=== PATIENT | male | born 1960 | race Caucasian/White ===

== ENCOUNTER 2021-11-03 22:47 | Emergency (ER) | payer SELFPAY ==
--- OUTSIDE RECORDS SUMMARY | 2021-11-03 22:50 | XMS REPORT | Continuity of Care Document ---
:1960 Author Organization [facility] t Address [address] Dur[address] [place] [id number] Care Team Providers Name Role Phone Unavailable Unavailable Unavailable Problems This patient has no known problems. Allergies, Adverse Reactions, Alerts Allergy Allergy Status Severity Reaction(s) Onset Inactive Treating Comm ents Source Name Type Date Date Clinician NO KNOWN Drug Active Univers ALLERGIE Class [facility] Medications This patient has no known medications. Procedures This patient has no known procedures. Encounters Start End Encounter Admission Attending Care Care Encounter Source Date/Time Date/Time Type Type Clinicians Facility Department ID 2020-02-03 2020-02-03 Outpatient [place] [id number] [facility] 13:40:00 13:40:00 [id number] [facility] 2020-02-03 2020-02-03 Outpatient [place] [id number] [facility] 13:40:00 13:40:00 [facility] Results This patient has no known results.
--- NOTE | 2021-11-03 23:06 | ER ---
Nurse's Notes [facility] Name: Alex Galvan Jr Age: 61 yrs Sex: Male : 1960 Arrival Date: 11/03/2021 Time: 22:50 Bed 4 Private MD: Diagnosis: Dental caries, unspecified Presentation: 11/03 22:57 Chief complaint: Patient states: Pain to left lower jaw, reports broken tooth, has not lp1 been able to seen dentist due to financial reasons; Reports headache. Onset of symptoms was November 03, 2021. 22:57 Method Of Arrival: Ambulatory lp1 22:57 Acuity: BON 4 lp1 23:05 Coronavirus screen: Vaccine status: Patient reports being unvaccinated. Ebola Screen: tw5 Patient negative for fever greater than or equal to 101.5 degrees Fahrenheit, and additional compatible Ebola Virus Disease symptoms Patient denies exposure to infectious person. Patient denies travel to an Ebola-affected area in the 21 days before illness onset. Initial Sepsis Screen: Does the patient meet any 2 criteria? No. Patient's initial sepsis screen is negative. Does the patient have a suspected source of infection? No. Patient's initial sepsis screen is negative. Risk Assessment: Do you want to hurt yourself or someone else? Patient reports no desire to harm self or others. Triage Assessment: 23:09 Headache History: Other not a headache. General: Appears uncomfortable, Behavior is tw5 calm, cooperative, appropriate for age. Pain: Pain currently is 8 out of 10 on a pain scale. Pain began gradually, Also complains of no other associated symptoms. EENT: Poor dentition noted. Neuro: Level of Consciousness is awake, alert, obeys commands. Historical: - Allergies: 23:09 No Known Allergies; tw5 - Immunization history:: Flu vaccine is not up to date. - Social history:: Smoking status: Patient reports use of chewing tobacco. Screenin:10 Abuse screen: Denies threats or abuse. Denies injuries from another. Nutritional tw5 screening: No deficits noted. Tuberculosis screening: No symptoms or risk factors identified. Fall Risk None identified. Assessment: 23:10 Pain: Pain currently is 8 out of 10 on a pain scale. Quality of pain is described as tw5 throbbing. Neuro: Level of Consciousness is awake, alert, obeys commands. EENT: Dental caries noted in lower left first molar (#19) and lower left second bicuspid (#20). Vital Signs: 23:05 BP 186 / 106; Pulse 68; Resp 18; Temp 97.8; Pulse Ox 97% on R/A; Weight 97.07 kg; tw5 Height 5 ft. 9 in. (175.26 cm); Pain 9/10; 23:05 Body Mass Index 31.60 (97.07 kg, 175.26 cm) tw5 ED Course: 22:50 Patient arrived in ED. ja2 22:51 Waldo Simmons MD is Attending Physician. kdr 22:58 Triage completed. lp1 23:03 Armando Eisenberg DDS is Referral Physician. kdr 23:09 Arm band placed on. tw5 23:10 Patient has correct armband on for positive identification. Adult w/ patient. Pulse ox tw5 on. NIBP on. Door closed. Moved to private room. 23:11 Pamela Arguello is Primary Nurse. tw5 23:21 No provider procedures requiring assistance completed. Patient did not have IV access tw5 during this emergency room visit. Administered Medications: 23:21 Not Given (Other Intervention Used): penicillin VK 250 mg PO once tw5 23:22 Drug: [place] (HYDROcodone-acetaminophen) 10 mg-325 mg 1 tabs Route: PO; tw5 23:22 Follow up: Response: No adverse reaction tw5 23:22 Drug: Amoxicillin 500 mg Route: PO; tw5 23:22 Follow up: Response: No adverse reaction tw5 Outcome: 23:05 Discharge ordered by . kdr 23:22 Discharged to home ambulatory. tw5 23:22 Condition: stable 23:22 Discharge instructions given to patient, Instructed on discharge instructions, follow up and referral plans. medication usage, Demonstrated understanding of instructions, follow-up care, medications, Prescriptions given X 2. 23:23 Patient left the ED. tw5 Signatures: Waldo Simmons MD MD kdr Jammie Miranda, JOSUÉ RN 1 Delmy Goncalves [facility] Pamela Arguello tw5
--- NOTE | 2021-11-03 23:06 | EDPHYS ---
Physician Documentation [facility] Name: Alex Galvan Jr Age: 61 yrs Sex: Male : 1960 Arrival Date: 11/03/2021 Time: 22:50 Bed 4 Private MD: ED Physician Waldo Simmons HPI: 11/04 00:59 This 61 yrs old Male presents to ER via Ambulatory with complaints of Mouth Problem, kdr Headache. 00:59 The patient presents with broken tooth/teeth, lost tooth/teeth, pain. The problem is kdr located in the lower left first molar, lower left second bicuspid and lower left first bicuspid. Onset: The symptoms/episode began/occurred gradually, 2 day(s) ago. Duration: The symptoms are continuous, and are steadily getting worse. Modifying factors: The symptoms are alleviated by nothing, the symptoms are aggravated by air, chewing, cold fluids, food. Associated signs and symptoms: Pertinent positives: pain, Pertinent negatives: anorexia, chills. Severity of symptoms: At their worst the symptoms were mild, moderate, just prior to arrival, in the emergency department the symptoms are unchanged. The patient has experienced similar episodes in the past, a few times. Historical: - Allergies: 11/03 23:09 No Known Allergies; tw5 - Immunization history:: Flu vaccine is not up to date. - Social history:: Smoking status: Patient reports use of chewing tobacco. ROS: 11/04 00:59 Constitutional: Negative for fever, chills, and weight loss, Eyes: Negative for injury, kdr pain, redness, and discharge, Neck: Negative for injury, pain, and swelling, Cardiovascular: Negative for chest pain, palpitations, and edema, Respiratory: Negative for shortness of breath, cough, wheezing, and pleuritic chest pain, Abdomen/GI: Negative for abdominal pain, nausea, vomiting, diarrhea, and constipation, Back: Negative for injury and pain, : Negative for injury, bleeding, discharge, and swelling, MS/Extremity: Negative for injury and deformity, Skin: Negative for injury, rash, and discoloration, Neuro: Negative for headache, weakness, numbness, tingling, and seizure activity. Psych: Negative for depression, anxiety, suicide ideation, homicidal ideation, and hallucinations, Allergy/Immunology: Negative for hives, rash, and allergies, Endocrine: Negative for neck swelling, polydipsia, polyuria, polyphagia, and marked weight changes, Hematologic/Lymphatic: Negative for swollen nodes, abnormal bleeding, and unusual bruising. ENT: Positive for dental pain, Gum pain Teeth pain Exam: 00:59 Constitutional: This is a well developed, well nourished patient who is awake, alert, kdr and in no acute distress. 00:59 ENT: Mouth: Gums: reddened, swollen, Dental exam: dental caries, that is severe, diffusely, fractured teeth are noted, diffusely, missing teeth, diffusely, pain, that is mild, specifically in the lower left first molar (#19), lower left second bicuspid (#20) and lower left first bicuspid (#21). Vital Signs: 11/03 23:05 BP 186 / 106; Pulse 68; Resp 18; Temp 97.8; Pulse Ox 97% on R/A; Weight 97.07 kg; tw5 Height 5 ft. 9 in. (175.26 cm); Pain 9/10; 23:05 Body Mass Index 31.60 (97.07 kg, 175.26 cm) tw5 MDM: 23:05 Patient medically screened. kdr 11/04 00:59 Data reviewed: vital signs, nurses notes. Counseling: I had a detailed discussion with kdr the patient and/or guardian regarding: the historical points, exam findings, and any diagnostic results supporting the discharge/admit diagnosis, the need for outpatient follow up. Administered Medications: 11/03 23:21 Not Given (Other Intervention Used): penicillin VK 250 mg PO once tw5 23:22 Drug: [place] (HYDROcodone-acetaminophen) 10 mg-325 mg 1 tabs Route: PO; tw5 23:22 Follow up: Response: No adverse reaction tw5 23:22 Drug: Amoxicillin 500 mg Route: PO; tw5 23:22 Follow up: Response: No adverse reaction tw5 Disposition Summary: 11/03/21 23:05 Discharge Ordered Location: Home kdr Problem: new kdr Symptoms: have improved kdr Condition: Stable kdr Diagnosis - Dental caries, unspecified kdr Followup: kdr - With: Private Physician - When: 2 - 3 days - Reason: If symptoms return, Further diagnostic work-up, Recheck today's complaints, Continuance of care, Re-evaluation by your physician Followup: kdr - With: Armando Eisenberg DDS - When: 2 - 3 days - Reason: If symptoms return, Further diagnostic work-up, Recheck today's complaints, Continuance of care, Re-evaluation by your physician Discharge Instructions: - Discharge Summary Sheet kdr - Dental Caries, Adult kdr - Dental Pain, [id number] kdr Forms: - Medication Reconciliation Form kdr - Thank You Letter kdr - Antibiotic Education kdr - Prescription Opioid Use kdr Prescriptions: - Tylenol-Codeine #3 300 mg-30 mg Oral - take 1 tablet by ORAL route every 4-6 hours As needed; 12 tablet; Refills: 0, kdr Product Selection Permitted - Amoxicillin 500 mg Oral Capsule - take 1 capsule by ORAL route every 8 hours for 10 days; 30 tablet; Refills: 0, kdr Product Selection Permitted Signatures: Waldo Simmons MD MD kdr Pamela Arguello tw5
[2021-11-03] MEDS ORDERED: HYDROCODONE/APAP 10/325 TAB ONE (23:12)
[2021-11-03] MEDS ORDERED: AMOXICILLIN TRIHYDR 250 MG CAP ONE (23:17)
[2021-11-03 23:54] VITALS: BP 186/106; TEMP 97.8; O2SAT 97
== END 2021-11-03 23:23 | disposition home or self-care (01) ==
LOC: ER 22:47
DX: K02.9 Dental caries, unspecified (principal); R51.9 Headache, unspecified; F17.220 Nicotine dependence, chewing tobacco, uncomplicated
CPT/HCPCS: 99283

== ENCOUNTER 2021-12-11 09:24 | Emergency (ER) | payer SELFPAY ==
--- OUTSIDE RECORDS SUMMARY | 2021-12-11 09:26 | XMS REPORT | Continuity of Care Document ---
:1960 Author Organization [facility] t Address [address] [place] [address] Care Team Providers Name Role Phone Unavailable Unavailable Unavailable Problems This patient has no known problems. Allergies, Adverse Reactions, Alerts Allergy Allergy Status Severity Reaction(s) Onset Inactive Treating Comm ents Source Name Type Date Date Clinician NO KNOWN Drug Active [facility] ALLERGIE Class [facility] Medications This patient has no known medications. Procedures This patient has no known procedures. Encounters Start End Encounter Admission Attending Care Care Encounter Source Date/Time Date/Time Type Type Clinicians Facility Department ID 2020-02-03 2020-02-03 Outpatient [address] [facility] [id number] Univers 13:40:00 13:40:00 [id number] [facility] 2020-02-03 2020-02-03 [address]patient R [facility] [id number] Univers 13:40:00 13:40:00 [facility] Results This patient has no known results.
[2021-12-11] MEDS ORDERED: LIDOCAINE JELLY 2%- 5 ML TUBE ONE (10:02)
[2021-12-11] MEDS ORDERED: LIDOCAINE 1% MPF 5 ML VIAL ONE ×2 (10:03→10:44)
--- NOTE | 2021-12-11 11:02 | ER ---
Nurse's Notes [facility] Name: Alex Galvan Jr Age: 61 yrs Sex: Male : 1960 Arrival Date: 12/11/2021 Time: 09:27 Bed 10 Private MD: Diagnosis: Cutaneous abscess of right axilla Presentation: 12/11 09:30 Chief complaint: Patient states: "I have this abscess under my arm and on my elbow. on jd3 the right arm. the one on the elbow busted, but the one under the arm is causing pain. We aren't sure if it is staff or what. it has been then for about a week now.". Coronavirus screen: At this time, the client does not indicate any symptoms associated with coronavirus-19. Ebola Screen: No symptoms or risks identified at this time. Initial Sepsis Screen: Does the patient meet any 2 criteria? No. Patient's initial sepsis screen is negative. Does the patient have a suspected source of infection? No. Patient's initial sepsis screen is negative. Risk Assessment: Do you want to hurt yourself or someone else? Patient reports no desire to harm self or others. Onset of symptoms was December 03, 2021. 09:30 Method Of Arrival: Ambulatory jd3 09:30 Acuity: BON 3 jd3 Triage Assessment: 11:28 General: Appears in no apparent distress. Behavior is calm, cooperative. iw Historical: - Allergies: 09:33 No Known Allergies; jd3 - Home Meds: 09:33 None [Active]; jd3 - PMHx: 09:33 None; jd3 - PSHx: 09:33 None; jd3 - Immunization history:: Adult Immunizations up to date, Client reports having NOT received the Covid vaccine. - Social history:: Smoking status: Patient reports use of chewing tobacco. Screenin:28 Abuse screen: Denies threats or abuse. Denies injuries from another. Nutritional iw screening: No deficits noted. Tuberculosis screening: No symptoms or risk factors identified. Fall Risk None identified. Assessment: 09:35 General: Appears uncomfortable, Behavior is calm. Pain: Complains of pain in right iw axilla. Neuro: [place] Agitation-Sedation Scale (RASS): Level of Consciousness is awake, alert, obeys commands, Oriented to person, place, time, situation, Moves all extremities. Cardiovascular: Patient's skin is warm and dry. Respiratory: Respiratory effort is even, unlabored, Respiratory pattern is regular. Derm: Abscess located on right axilla. Derm: Abscess located on right elbow. Musculoskeletal: Range of motion: intact in all extremities. Vital Signs: 09:33 BP 142 / 70; Pulse 99; Resp 18 S; Temp 98.1(TE); Pulse Ox 99% on R/A; Weight 96.62 kg jd3 (R); Height 5 ft. 9 in. (175.26 cm) (R); Pain 5/10; 09:33 Body Mass Index 31.45 (96.62 kg, 175.26 cm) jd3 ED Course: 09:27 Patient arrived in ED. as 09:32 Triage completed. jd3 09:34 Arm band placed on. jd3 09:40 Patient has correct armband on for positive identification. iw 09:46 Kylah Rai NP is PHCP. aj3 09:46 Waldo Simmons MD is Attending Physician. aj3 09:56 Kim Ireland, JOSUÉ is Primary Nurse. iw 10:50 Assist provider with I \\T\\ D: of an abscess on right axilla Set up I\\T\\D tray. Performed by iw Kylah Rai NP Wound packed. Dressing with Patient tolerated. Patient did not have IV access during this emergency room visit. 10:59 Angel Kyle MD is Referral Physician. aj3 Administered Medications: 10:02 Drug: Lidocaine Gel 2 % 1 application Route: Mucous Membrane; iw 11:00 Drug: Lidocaine (1 %) 10 ml Volume: 20 ml; Route: Infiltration; iw 11:26 Drug: Ibuprofen 400 mg Route: PO; iw 11:40 Follow up: Response: No adverse reaction iw 11:26 Drug: HYDROcodone-acetaminophen 10 mg-325 mg 1 tabs Route: PO; iw 11:45 Follow up: Response: No adverse reaction iw Medication: 10:00 VIS not applicable for this client. iw Outcome: 11:01 Discharge ordered by . aj3 11:03 Patient left the ED. aj3 11:28 Discharged to home ambulatory, with family. iw 11:28 Condition: good 11:28 Discharge instructions given to patient, Instructed on discharge instructions, follow iw up and referral plans. medication usage, Demonstrated understanding of instructions, follow-up care, medications, Prescriptions given X 2. 11:29 Patient left the ED. iw Signatures: Caterina Navarrete Irene RN RN iw Sage Caputo RN RN jd3 Kylah Rai, HOUSE CARPENTER HOUSE CARPENTER aj3
--- NOTE | 2021-12-11 11:02 | EDPHYS ---
Physician Documentation [facility] Name: Alex Galvan Jr Age: 61 yrs Sex: Male : 1960 Arrival Date: 12/11/2021 Time: 09:27 Bed 10 Private MD: ED Physician Waldo Simmons HPI: 12/11 11:38 This 61 yrs old Male presents to ER via Ambulatory with complaints of Abscess, Fever, aj3 chills. 11:38 The patient presents with an abscess of the Right axilla and right elbow. Onset: The aj3 symptoms/episode began/occurred acutely, 1 week(s) ago. Associated signs and symptoms: Pertinent positives: drainage, erythema, fever, Pertinent negatives: nausea, shortness of breath, vomiting. Patient is presenting with abscess to right axilla region for the past week. He also noticed abscess to right elbow which is improving. He reports he noticed some fever and chills last night.. Historical: - Allergies: 09:33 No Known Allergies; jd3 - Home Meds: 09:33 None [Active]; jd3 - PMHx: 09:33 None; jd3 - PSHx: 09:33 None; jd3 - Immunization history:: Adult Immunizations up to date, Client reports having NOT received the Covid vaccine. - Social history:: Smoking status: Patient reports use of chewing tobacco. ROS: 11:38 Eyes: Negative for injury, pain, redness, and discharge, ENT: Negative for nasal aj3 discharge, congestion, sore throat and injury Neck: Negative for injury, pain, and swelling, Cardiovascular: Negative for chest pain, palpitations, and edema, Respiratory: Negative for shortness of breath, cough, wheezing, and pleuritic chest pain, Abdomen/GI: Negative for abdominal pain, nausea, vomiting, diarrhea, and constipation, Neuro: Negative for syncope, headache, weakness, numbness, tingling, and seizure. 11:38 Constitutional: Positive for chills, fever, Negative for body aches, malaise. 11:38 MS/extremity: Positive for erythema, tenderness, Right elbow. 11:38 Skin: Positive for abscess, cellulitis, Right axilla. Exam: 11:38 Constitutional: This is a well developed, well nourished patient who is awake, alert, aj3 and in no acute distress. Head/Face: Normocephalic, atraumatic. Eyes: Pupils equal round and reactive to light, extra-ocular motions intact. Lids and lashes normal. Conjunctiva and sclera are non-icteric and not injected. Cornea within normal limits. Periorbital areas with no swelling, redness, or edema. ENT: Nares patent. No nasal discharge, no septal abnormalities noted. Tympanic membranes are normal and external auditory canals are clear. Oropharynx with no redness, swelling, or masses, exudates, or evidence of obstruction, uvula midline. Mucous membranes moist. Neck: Trachea midline and no cervical lymphadenopathy. Supple, full range of motion without nuchal rigidity. Cardiovascular: Regular rate and rhythm with a normal S1 and S2. No gallops, murmurs, or rubs. Normal PMI, no JVD. No pulse deficits. Respiratory: Lungs have equal breath sounds bilaterally, clear to auscultation and percussion. No rales, rhonchi or wheezes noted. No increased work of breathing, no retractions or nasal flaring. Abdomen/GI: Soft, non-tender, with normal bowel sounds. No distension or tympany. No guarding or rebound. No evidence of tenderness throughout. Neuro: Awake and alert, GCS 15, oriented to person, place, time, and situation. Cranial nerves II-XII grossly intact. Motor strength 5/5 in all extremities. Sensory grossly intact. Cerebellar exam normal. Normal gait. 11:38 Musculoskeletal/extremity: Exam is negative for Extremities: grossly normal except: erythema, swelling, tenderness, Right elbow. 11:38 Skin: abscess, that is moderate sized, of the Right axilla, with fluctuance, with induration, with surrounding cellulitis. 11:38 Neuro: Exam negative for Vital Signs: 09:33 BP 142 / 70; Pulse 99; Resp 18 S; Temp 98.1(TE); Pulse Ox 99% on R/A; Weight 96.62 kg jd3 (R); Height 5 ft. 9 in. (175.26 cm) (R); Pain 5/10; 09:33 Body Mass Index 31.45 (96.62 kg, 175.26 cm) jd3 Procedures: 11:00 I \T\ D: Incision and drainage was performed for an abscess of the right axilla. Prepped aj3 with Betadine, Anesthetized with Incised with #11 blade. Drained small amount purulent fluid. serosanguinous fluid. Loculations removed. Packed with iodoform gauze, Dressing: sterile 4x4 gauze, the patient tolerated the procedure well. MDM: 09:46 Patient medically screened. aj3 11:43 Data reviewed: vital signs, nurses notes. Counseling: I had a detailed discussion with aj3 the patient and/or guardian regarding: the historical points, exam findings, and any diagnostic results supporting the discharge/admit diagnosis, the need for outpatient follow up, to return to the emergency department if symptoms worsen or persist or if there are any questions or concerns that arise at home. Response to treatment: the patient's symptoms have mildly improved after treatment. 11:44 ED course: Incision and drainage performed with some success. Induration noted in aj3 pretty extensive. Will prescribe 2 antibiotics for 10 days patient to follow-up with PCP or return here for wound check. Discharge instructions, medications prescribed and ER return precautions discussed and patient verbalized understanding. 12/11 09:56 Order name: Incision \T\ Drainage Setup; Complete Time: 11:11 aj3 Administered Medications: 10:02 Drug: Lidocaine Gel 2 % 1 application Route: Mucous Membrane; iw 11:00 Drug: Lidocaine (1 %) 10 ml Volume: 20 ml; Route: Infiltration; iw 11:26 Drug: Ibuprofen 400 mg Route: PO; iw 11:40 Follow up: Response: No adverse reaction iw 11:26 Drug: HYDROcodone-acetaminophen 10 mg-325 mg 1 tabs Route: PO; iw 11:45 Follow up: Response: No adverse reaction iw Disposition: 11:59 Co-signature as Attending Physician, Waldo Simmons MD I agree with the assessment and kdr plan of care. Disposition Summary: 12/11/21 11:01 Discharge Ordered Location: Home aj3 Problem: new aj3 Symptoms: have improved aj3 Condition: Stable aj3 Diagnosis - Cutaneous abscess of right axilla aj3 Followup: aj3 - With: Angel Kyle MD - When: - Reason: Recheck today's complaints, Re-evaluation by your physician Followup: aj3 - With: Emergency Department - When: 2 - 3 days - Reason: Wound Recheck, If symptoms return Discharge Instructions: - Discharge Summary Sheet aj3 - Skin Abscess, [id number] aj3 - Incision and Drainage, Care After aj3 Forms: - Work release form eb - Medication Reconciliation Form aj3 - Thank You Letter aj3 - Antibiotic Education aj3 - Prescription Opioid Use aj3 Prescriptions: - Cephalexin 500 mg Oral Capsule - take 1 capsule by ORAL route every 6 hours for 10 days; 40 capsule; Refills: 0, aj3 Product Selection Permitted - Doxycycline Hyclate 100 mg Oral Tablet - take 1 tablet by ORAL route every 12 hours; 20 tablet; Refills: 0, Product aj3 Selection Permitted Signatures: Waldo Simmons MD MD kdr Williams, Irene, RN RN iw Sage Caputo RN RN jd3 Kylah Rai NP [employer] SUPERVISOR aj3
[2021-12-11] MEDS ORDERED: HYDROCODONE/APAP 10/325 TAB ONE (11:26)
[2021-12-11] MEDS ORDERED: IBUPROFEN 400 MG TAB ONE (11:26)
[2021-12-11 11:33] VITALS: BP 142/70; TEMP 98.1; O2SAT 99
== END 2021-12-11 11:29 | disposition home or self-care (01) ==
LOC: ER 09:24
PROC: 0H9BXZZ Drainage of Right Upper Arm Skin, External Approach (ICD-10-PCS; principal; 2021-12-11)
DX: L02.411 Cutaneous abscess of right axilla (principal); F17.220 Nicotine dependence, chewing tobacco, uncomplicated
CPT/HCPCS: 99283

== ENCOUNTER 2021-12-12 23:28 | Inpatient (IN) | payer SELFPAY ==
--- OUTSIDE RECORDS SUMMARY | 2021-12-12 23:31 | XMS REPORT | Continuity of Care Document ---
:1960 Author Organization [facility] t Address [address] [place] [address] Care Team Providers Name Role Phone Unavailable Unavailable Unavailable Problems This patient has no known problems. Allergies, Adverse Reactions, Alerts Allergy Allergy Status Severity Reaction(s) Onset Inactive Treating Comm ents Source Name Type Date Date Clinician NO KNOWN Drug Active [facility] ALLERGIE Class [facility] Medications This patient has no known medications. Procedures This patient has no known procedures. Encounters Start End Encounter Admission Attending Care Care Encounter Source Date/Time Date/Time Type Type Clinicians Facility Department ID 2020-02-03 2020-02-03 Outpatient R [facility] [id number] Univers 13:40:00 13:40:00 [id number] [facility] 2020-02-03 2020-02-03 Outpatient R [facility] [id number] Univers 13:40:00 13:40:00 [facility] Results This patient has no known results.
--- NOTE | 2021-12-13 02:52 | EDPHYS ---
Physician Documentation [facility] Name: Alex Galvan Jr Age: 61 yrs Sex: Male : 1960 Arrival Date: 12/12/2021 Time: 23:33 Bed 8 Private MD: ED Physician Arnoldo Davis HPI: 12/13 02:44 This 61 yrs old Male presents to ER via Ambulatory with complaints of Wound Infection. mh7 02:44 The patient presents with an abscess of the right arm and right axilla, the patient mh7 presents with a swollen area of the right arm and right axilla. Description: erythematous, streaking, swollen. Onset: The symptoms/episode began/occurred 4 day(s) ago. Possible cause(s): unknown. Associated signs and symptoms: Pertinent positives: erythema, swelling, Bodyaches. Modifying factors: the symptoms are alleviated by nothing, the symptoms are aggravated by nothing. Severity of symptoms: At their worst the symptoms were moderate, last night, in the emergency department the symptoms are unchanged. The patient has been recently seen at [facility] Emergency Department, yesterday. Had I\\T\\D done here yesterday and put on antibiotics but redness is spreading.. Historical: - Allergies: 00:00 No Known Allergies; jb4 - Home Meds: 00:00 Cephalexin Oral [Active]; Doxycycline Oral [Active]; jb4 - PMHx: 00:00 None; jb4 - PSHx: 00:00 None; jb4 - Immunization history:: Adult Immunizations up to date, Client reports having NOT received the Covid vaccine. - Social history:: Smoking status: Patient reports use of chewing tobacco. Patient/guardian denies using alcohol. ROS: 02:44 Eyes: Negative for injury, pain, redness, and discharge, ENT: Negative for injury, mh7 pain, and discharge, Neck: Negative for injury, pain, and swelling, Cardiovascular: Negative for chest pain, palpitations, and edema, Respiratory: Negative for shortness of breath, cough, wheezing, and pleuritic chest pain, Abdomen/GI: Negative for abdominal pain, nausea, vomiting, diarrhea, and constipation, Back: Negative for injury and pain, : Negative for injury, bleeding, discharge, and swelling, Neuro: Negative for headache, weakness, numbness, tingling, and seizure, Psych: Negative for depression, anxiety, suicide ideation, homicidal ideation, and hallucinations, Allergy/Immunology: Negative for hives, rash, and allergies, Endocrine: Negative for neck swelling, polydipsia, polyuria, polyphagia, and marked weight changes, Hematologic/Lymphatic: Negative for swollen nodes, abnormal bleeding, and unusual bruising. Exam: 02:44 Constitutional: This is a well developed, well nourished patient who is awake, alert, mh7 and in no acute distress. Head/Face: Normocephalic, atraumatic. Eyes: Pupils equal round and reactive to light, extra-ocular motions intact. Lids and lashes normal. Conjunctiva and sclera are non-icteric and not injected. Cornea within normal limits. Periorbital areas with no swelling, redness, or edema. Neck: Trachea midline, no thyromegaly or masses palpated, and no cervical lymphadenopathy. Supple, full range of motion without nuchal rigidity, or vertebral point tenderness. No Meningismus. 02:44 Cardiovascular: Regular rate and rhythm with a normal S1 and S2. No gallops, murmurs, or rubs. Normal PMI, no JVD. No pulse deficits. Respiratory: Lungs have equal breath sounds bilaterally, clear to auscultation and percussion. No rales, rhonchi or wheezes noted. No increased work of breathing, no retractions or nasal flaring. Abdomen/GI: Soft, non-tender, with normal bowel sounds. No distension or tympany. No guarding or rebound. No evidence of tenderness throughout. Back: No spinal tenderness. No costovertebral tenderness. Full range of motion. 02:44 Neuro: Awake and alert, GCS 15, oriented to person, place, time, and situation. Cranial nerves II-XII grossly intact. Motor strength 5/5 in all extremities. Sensory grossly intact. Cerebellar exam normal. Normal gait. Psych: Awake, alert, with orientation to person, place and time. Behavior, mood, and affect are within normal limits. 02:44 Chest/axilla: Inspection: abscess, that is small, of the right axilla cellulitis, of the right axilla Palpation: tenderness, that is mild, of the right axilla, Axilla: abscess, that is small, of the right axilla, with draining, with surrounding erythema, cellulitis, that is moderate, of the right axilla, Lymph nodes: lymphadenopathy is not appreciated. 02:44 Skin: abscess, that is small, of the right arm and right axilla, with drainage, that is purulent, cellulitis, that is moderate, on the right axilla. Vital Signs: 12/12 23:57 Pulse 94; Resp 18; Temp 99.2(TE); Pulse Ox 99% on R/A; Weight 96.62 kg; Height 5 ft. 9 jb4 in. (175.26 cm) (R); Pain 0/10; 12/13 01:50 BP 126 / 84; Pulse 87; Resp 16 S; Pulse Ox 95% on R/A; as6 02:30 BP 136 / 83; Pulse 87; Resp 18 S; Pulse Ox 95% on R/A; as6 04:30 BP 128 / 80; Pulse 86; Resp 19 S; Pulse Ox 96% on R/A; 6 12/12 23:57 Body Mass Index 31.45 (96.62 kg, 175.26 cm) jb4 MDM: 02:49 Differential diagnosis: abscess, allergic reaction, cellulitis. Data reviewed: vital [facility] signs, nurses notes. Counseling: I had a detailed discussion with the patient and/or guardian regarding: the historical points, exam findings, and any diagnostic results supporting the discharge/admit diagnosis, the need for further work-up and treatment in the hospital. 02:51 Patient medically screened. [facility] 12/13 02:43 Order name: CBC with Diff [facility] 12/13 02:43 Order name: Basic Metabolic Panel; Complete Time: 04:26 [facility] 12/13 02:43 Order name: Protime (+inr); Complete Time: 04:20 [facility] 12/13 02:43 Order name: Ptt, Activated; Complete Time: 04:20 [facility] 12/13 02:43 Order name: LFT's; Complete Time: 04:26 [facility] 12/13 02:44 Order name: Blood Culture Adult (2) [facility] 12/13 02:44 Order name: COVID-19 SARS RT PCR (Document "Date of Onset" if Symptomatic) [facility] 12/13 02:45 Order name: Blood Culture [facility] 12/13 03:31 Order name: Wound Culture [facility] 12/13 03:58 Order name: Urine Dipstick-Ancillary; Complete Time: 04:17 [facility] 12/13 04:51 Order name: Manual Differential [facility] 12/13 07:49 Order name: Glucose, Ancillary Testing [facility] 12/13 12:47 Order name: Glucose, Ancillary Testing [facility] 12/13 02:43 Order name: Saline Lock; Complete Time: 04:15 7 12/13 02:43 Order name: Urine Dipstick-Ancillary (obtain specimen); Complete Time: 04:16 7 12/13 02:45 Order name: Misc. Order: Obtain wound culture if possible; Complete Time: 04:15 la1 12/13 02:57 Order name: NPO; Complete Time: 04:15 la1 Administered Medications: 03:30 Drug: NS 0.9% 1000 ml Route: IV; Rate: 1000 ml; Site: left antecubital; as6 06:29 Follow up: Response: No adverse reaction; IV Status: Completed infusion; IV Intake: as6 1000ml 03:30 Drug: Cefepime 1 grams Route: IVPB; Rate: 200 ml/hr; Infused Over: 30 mins; Site: left as6 antecubital; 06:29 Follow up: Response: No adverse reaction; IV Status: Completed infusion; IV Intake: as6 100ml 05:07 Drug: vancoMYCIN 1 grams Route: IVPB; Infused Over: 2 hrs; Site: left antecubital; as6 05:08 Drug: Insulin Regular Human 10 units {Co-Signature: bb (Belinda Freeman RN).} Route: as6 Sub-Q; Site: left upper abdomen; 06:29 Follow up: Response: No adverse reaction as6 Disposition Summary: 12/13/21 02:51 Hospitalization Ordered Hospitalization Status: Inpatient Admission mh7 Provider: Je Robertson Condition: Stable [facility] Problem: new 7 Symptoms: have worsened mh7 Bed/Room Type: Standard [facility] Location: [facility] ER HOLD(12/13/21 03:38) cg Room Assignment: ERHOLD-(12/13/21 03:38) cg Diagnosis - Cellulitis, right upper extremity, Abscess, s/p I\\T\\D 7 Forms: - Medication Reconciliation Form 7 - SBAR form [facility] Signatures: Dispatcher [employer] EDVT Crystal, Umesh, FAMILY PRESERVATION OFFICER-C FAMILY PRESERVATION OFFICER-Cla1 Liliam Stuart RN RN cg Chema Villalobos RN RN jb4 Arnoldo Davis MD MD 7 Neftali Strauss RN RN as6 Belinda Freeman RN bb Corrections: (The following items were deleted from the chart) 03:38 02:51 [place] [facility] [place]:38 02:51 [facility] [place]
--- NOTE | 2021-12-13 02:52 | ER ---
Nurse's Notes [facility] Name: Alex Galvan Jr Age: 61 yrs Sex: Male : 1960 Arrival Date: 12/12/2021 Time: 23:33 Bed 8 Private MD: Diagnosis: Cellulitis, right upper extremity, Abscess, s/p I\T\D Presentation: 12/12 23:57 Chief complaint: Patient states: I had an abscess lanced Monday and the packing fell jb4 out of the one under his arm. We noticed it was red raised and looked like the redness was spreading. Coronavirus screen: At this time, the client does not indicate any symptoms associated with coronavirus-19. Ebola Screen: No symptoms or risks identified at this time. Initial Sepsis Screen: Does the patient meet any 2 criteria? HR > 90 bpm. Yes Does the patient have a suspected source of infection? No. Patient's initial sepsis screen is negative. Risk Assessment: Do you want to hurt yourself or someone else? Patient reports no desire to harm self or others. Onset of symptoms was December 13, 2021. Transition of care: patient was not received from another setting of care. 23:57 Method Of Arrival: Ambulatory jb4 23:57 Acuity: BON 3 jb4 Triage Assessment: 12/13 00:00 General: Appears in no apparent distress. comfortable, Behavior is calm, cooperative, jb4 appropriate for age. Pain: Denies pain. Neuro: Level of Consciousness is awake, alert, obeys commands, Oriented to person, place, time, situation. Cardiovascular: Patient's skin is warm and dry. Respiratory: Airway is patent Respiratory effort is even, unlabored, Respiratory pattern is regular, symmetrical. GI: No signs and/or symptoms were reported involving the gastrointestinal system. : No signs and/or symptoms were reported regarding the genitourinary system. Derm: Skin is pink, warm \T\ dry. Wound noted right axilla and palmar aspect of right forearm Swelling and redness noted to the right axilla, pt reports the redness is spreading. Musculoskeletal: Circulation, motion, and sensation intact. Range of motion: intact in all extremities. Historical: - Allergies: 00:00 No Known Allergies; jb4 - Home Meds: 00:00 Cephalexin Oral [Active]; Doxycycline Oral [Active]; jb4 - PMHx: 00:00 None; jb4 - PSHx: 00:00 None; jb4 - Immunization history:: Adult Immunizations up to date, Client reports having NOT received the Covid vaccine. - Social history:: Smoking status: Patient reports use of chewing tobacco. Patient/guardian denies using alcohol. Screenin:50 Abuse screen: Denies threats or abuse. Denies injuries from another. Nutritional as6 screening: No deficits noted. Tuberculosis screening: No symptoms or risk factors identified. Fall Risk None identified. Assessment: 01:48 General: Appears in no apparent distress. Behavior is calm, cooperative. Pain: as6 Complains of pain in right axilla. Neuro: [place] Agitation-Sedation Scale (RASS): 0 - Alert and Calm Level of Consciousness is awake, alert, obeys commands, Oriented to person, place, time, situation. Cardiovascular: JVD is absent Patient's skin is warm and dry. Respiratory: Respiratory effort is even, unlabored, Respiratory pattern is regular, symmetrical. Derm: Wound noted right axilla Wound is abscess. Vital Signs: 12/12 23:57 Pulse 94; Resp 18; Temp 99.2(TE); Pulse Ox 99% on R/A; Weight 96.62 kg; Height 5 ft. 9 jb4 in. (175.26 cm) (R); Pain 0/10; 12/13 01:50 BP 126 / 84; Pulse 87; Resp 16 S; Pulse Ox 95% on R/A; as6 02:30 BP 136 / 83; Pulse 87; Resp 18 S; Pulse Ox 95% on R/A; as6 04:30 BP 128 / 80; Pulse 86; Resp 19 S; Pulse Ox 96% on R/A; as6 12/12 23:57 Body Mass Index 31.45 (96.62 kg, 175.26 cm) jb4 ED Course: 12/12 23:33 Patient arrived in ED. bp1 12/13 00:00 Triage completed. jb4 00:00 Arm band placed on left wrist. jb4 01:30 Neftali Strauss, RN is Primary Nurse. as6 01:50 Placed in gown. Bed in low position. Call light in reach. Side rails up X2. Pulse ox as6 on. NIBP on. Warm blanket given. 01:53 Arnoldo Davis MD is Attending Physician. mh7 02:49 Je Robertson MD is Hospitalizing Provider. mh7 03:30 Inserted saline lock: 18 gauge in left antecubital area, using aseptic technique. Blood as6 collected. 04:16 No provider procedures requiring assistance completed. Patient admitted, IV remains in as6 place. Administered Medications: 03:30 Drug: NS 0.9% 1000 ml Route: IV; Rate: 1000 ml; Site: left antecubital; as6 06:29 Follow up: Response: No adverse reaction; IV Status: Completed infusion; IV Intake: as6 1000ml 03:30 Drug: Cefepime 1 grams Route: IVPB; Rate: 200 ml/hr; Infused Over: 30 mins; Site: left as6 antecubital; 06:29 Follow up: Response: No adverse reaction; IV Status: Completed infusion; IV Intake: as6 100ml 05:07 Drug: vancoMYCIN 1 grams Route: IVPB; Infused Over: 2 hrs; Site: left antecubital; as6 05:08 Drug: Insulin Regular Human 10 units {Co-Signature: bb (Belinda Freeman RN).} Route: as6 Sub-Q; Site: left upper abdomen; 06:29 Follow up: Response: No adverse reaction as6 Medication: 04:16 VIS not applicable for this client. as6 Intake: 06:29 IV: 1000ml; Total: 1000ml. as6 06:29 IV: 100ml; Total: 1100ml. as6 Outcome: 02:51 Decision to Hospitalize by Provider. [facility] 04:16 Admitted to ER Hold. Please see [facility] for further documentation. as6 04:16 Condition: stable 04:16 Instructed on the need for admit. 13:42 Patient left the ED. jg9 Signatures: Chema Villalobos RN RN jb4 Brenda Quintana Maurice, MD MD 7 Neftali Strauss RN RN as6 Gail Jay RN RN jg9 Belinda torres
[2021-12-13] MEDS ORDERED: CEFEPIME 1 GM/VIAL ONE (03:23)
[2021-12-13] MEDS ORDERED: NA CHLORIDE 0.9% 1,000 ML ONE ×2 (03:23→05:01)
[2021-12-13] MEDS ORDERED: NA CHLORIDE 0.9% 100 ML ONE (03:23)
[2021-12-13] MEDS ORDERED: NA CHLORIDE 0.9% 250 ML ONE (03:23)
[2021-12-13] MEDS ORDERED: VANCOMYCIN 1 GM/VIAL ONE (03:23)
--- NOTE | 2021-12-13 03:48 | P.HP ---
Certification for Inpatient Patient admitted to: Inpatient With expected LOS: >2 Midnights Patient will require the following post-hospital care: None Practitioner: I am a practitioner with admitting privileges, knowledge of patient current condition, hospital course, and medical plan of care. Services: Services provided to patient in accordance with Admission requirements found in Title 42 Section 412.3 of the Code of Federal Regulations Patient History Date of Service: 12/13/21 Reason for admission: R axilla abscessfailed outpatient antibiotics History of Present Illness: 61-year-old male with no known significant past medical history presents emergency department for right axilla abscess-failed outpatient antibiotics. Patient was seen on 12/11/2021 in the emergency department here had incision and drainage of the right axilla performed he was prescribed Keflex doxycycline at the time which he has been compliant with thus far. Today he noted that he has significant erythema/cellulitis extending from the site of the abscess induration also noted. Patient was started on broad-spectrum antibiotics vancomycin/cefepime, wound and blood cultures were obtained ED prior wishes to admit for further evaluation and management of cellulitis and abscess right axilla. Allergies No Known Allergies Allergy (Unverified 12/13/21 04:19) - Past Medical/Surgical History -: none -: none Psychosocial/ Personal History: he lives at home with his - Family History Mother -: Diabetes - Social History Smoking Status: Never smoker Alcohol use: No CD- Drugs: No Caffeine use: Yes Place of Residence: Home Review of Systems 10-point ROS is otherwise unremarkable General: Fever, Chills Integumentary: Other (Swelling, erythema, tenderness right axilla) Physical Examination - Physical Exam General: Alert, In no apparent distress, Oriented x3 HEENT: Atraumatic, PERRLA, Mucous membr. moist/pink, EOMI, Sclerae nonicteric Neck: Supple, 2+ carotid pulse no bruit, No LAD, Without JVD or thyroid abnormality Respiratory: Clear to auscultation bilaterally, Normal air movement Cardiovascular: Regular rate/rhythm, Normal S1 S2 Capillary refill: <2 Seconds Gastrointestinal: Normal bowel sounds, No tenderness Musculoskeletal: No tenderness Integumentary: No rashes, Tenderness/swelling (Cyst with surrounding erythema/cellulitis of the right axilla as well as cyst without erythema or cellulitis of the right forearm), Erythema, Warmth Neurological: Normal speech, Normal strength at 5/5 x4 extr, Normal tone, Normal affect Assessment and Plan - Plan Assessment: Cutaneous abscess of the right forearm, right axilla surrounding erythema/cellulitisfailed outpatient antibiotic Hyperglycemia Plan: Cutaneous abscess of the right forearm, right axilla surrounding erythema/cellul itisfailed outpatient antibiotic- NPO, surgical consult, broad spectrum abx, blood and wound cultures obtained. anticipate clinical imp. in the next 48-72 hours. Hyperglycemia: Suspect undiagnosed diabetes mellitus type 2, we will obtain A1c. Given insulin, IV fluids in ER continue with every 6 hours Accu-Chek, sliding scale insulin. DVT PPX: SCD Code status:full Discharge Plan: Home Plan to discharge in: 72 Hours - Advance Directives Does patient have a Living Will: No Does patient have a Durable POA for Healthcare: No - Code Status/Comfort Care Code Status Assessed: Yes (Full code) Critical Care: No Time Spent Managing Pts Care (In Minutes): 70
[2021-12-13 03:58] LABS: Urine Blood Trace-lysed (Negative); Urine Glucose 2+ (Negative); Urine Protein 1+ (Negative); Urine pH 5.5 (5.0-7.0)
[2021-12-13 04:05] LABS: Absolute Lymphocytes (CBC) 0.8 K/uL (0.7-4.9); Hematocrit 41.3 % (39.6-49.0); Lymphocytes % 4.6 % (15.3-44.8); MPV 7.9 fL (7.6-11.3); RBC Red Blood Cell Count 4.65 M/uL (4.33-5.43)
[2021-12-13 04:17] LABS: Protime INR 1.12
[2021-12-13] MEDS ORDERED: MORPHINE 2 MG/ML SYR IV PRN (04:19)
[2021-12-13] MEDS ORDERED: NA CHLORIDE 0.9% 1,000 ML IV SCH (04:19)
[2021-12-13] MEDS ORDERED: ONDANSETRON 4 MG/2 ML VIAL IV PRN (04:19)
[2021-12-13] MEDS ORDERED: VANCOMYCIN 1 GM in NA CHLORIDE 0.9% 250 ML IVPB SCH (04:19)
[2021-12-13 04:26] LABS: Bilirubin Direct 0.2 mg/dL (0-0.2); Bilirubin Total 0.4 mg/dL (0.2-1.0); Potassium 4.4 mmol/L (3.5-5.1); Protein, Total 7.6 g/dL (6.4-8.2)
[2021-12-13 04:28] VITALS: BMI 30.5
[2021-12-13] MEDS ORDERED: D50W 25 GM/50 ML SYRINGE IV PRN (04:30)
[2021-12-13] MEDS ORDERED: GLUCAGON 1 MG/VIAL IM PRN (04:30)
[2021-12-13] MEDS ORDERED: D10W 125 ML IV PRN (04:33)
[2021-12-13 04:51] LABS: Blood Morphology Comment NOT SEEN (NOT SEEN); Platelet Estimate ADEQ
[2021-12-13] MEDS ORDERED: INSULIN -REGULAR HUMAN 50 UNIT/0.5 ML ML ONE ×4 (05:01→14:03)
[2021-12-13] MEDS ORDERED: VANCOMYCIN 750 MG in NA CHLORIDE 0.9% 150 ML IVPB ONE (06:00)
[2021-12-13] MEDS: INSULIN -REGULAR HUMAN 50 UNIT/0.5 ML ML SQ SCH ×2 (06:00→12:00)
[2021-12-13] MEDS ORDERED: propofoL 200 MG/20 ML VIAL IV ONE (13:36)
[2021-12-13] MEDS ORDERED: LIDOCAINE 1% MPF 5 ML VIAL ONE (13:37)
[2021-12-13] MEDS ORDERED: MIDAZOLAM HCL 2 MG/2 ML INJ ONE (13:37)
[2021-12-13] MEDS ORDERED: FENTANYL CITR 100 MCG/2 ML ONE (13:37)
[2021-12-13] MEDS ORDERED: ONDANSETRON 4 MG/2 ML VIAL ONE (13:37)
--- NOTE | 2021-12-13 14:18 | P.CNS ---
Date of Consult: 12/13/21 PC: This 61-year-old male presented back to the emergency room with pain in his right axilla for diagnosis and treatment. HPC: Patient has been seen earlier this week. Had an incision, drainage, and debridement of an abscess in his right axilla. Abscesses reoccurred. PSHx: Previous incision and drainage of right axilla PMHx: Hypertension Social Hx: No known allergies Sys R: No cough, wheeze, shortness of breath. No chest pain or palpitations. Has been running some temperatures and fevers at home. O/E: Awake alert vital signs are stable HEENT: Negative Chest: Air entry equal bilaterally Abd: Intact [place]: In the right axilla has a surgical incision that shows some fluctuance around it. Also has an area on his right forearm consistent with a MRSA abscess. Numerous skin tags in the right axilla Data: Elevated white cell count Impression: Recurrent abscess in the right axilla with skin tags and a abscess on his right forearm Plan: I will taken to the operating room for repeat incision of this right axillary abscess. We will also remove some of the skin tags. We will also drain the abscess on his right forearm. The risks of this procedure have been discussed. The possibility of bleeding, infection, need for further surgeries and procedures was outlined. He understands and wants us to proceed.
--- NOTE | 2021-12-13 14:52 | P.OP ---
Preoperative diagnosis: Abscess of the right axilla, abscess of the right forearm, 5 skin tags Postoperative diagnosis: Abscess of the right axilla x2, abscess of the right forearm, 5 skin tags Primary procedure: Incision, drainage, and sharp debridement of 2 abscesses of the right axill Secondary procedure: Incision, drainage, and sharp debridement of abscess of the right forearm Other procedure(s): Excision of 5 skin tags right axilla Anesthesia: MAC Estimated blood loss: Less than 10 cc Specimen: None sent Operative Technique: The patient brought the operating room and placed supine on the table. After the induction of adequate anesthesia, there the right axilla was prepped with a Betadine solution, and he was draped in usual aseptic manner. Attention was turned towards the right axilla. We could see the site where the patient had a previous incision and drainage done. On probing this we encountered some purulent material where the abscess cavity had closed off deeply. A counterincision was made through which were able to pass a hemostat and passed a drain through this area. This was then pinned on itself to keep it open and draining during the postoperative period. Attention was now turned towards the anterior axillary fold. In this area there was an area of fluctuance as well. A counterincision was made. We were now able to join his back to the other drain hole in the right upper portion of the axilla. Purulent material was expressed from this area, and the drain was left in place and on itself. Attention was now turned towards numerous skin tags the patient had in the right axilla. There were approximately 5 of them. These were excised using electrocautery. Adequate hemostasis having been ensured attention was turned towards the abscess on the patient's right forearm. Once again this area had formed an abscess, but close the skin closed over it. The central area was excised leaving a hole 5 mm in diameter. This area was cleaned out using electrocautery. A #2 nylon was placed into the wound and brought out more laterally to keep it open and draining during the postoperative period. At the end of the procedure he was in a stable condition when sent to the recovery room. Needle sponge instrument count were correct. Complications: None Drain(s): Wound drain (2 quarter-inch [place] drains, one #2 nylon) Transferred to: Recovery Room Condition: Good
[2021-12-13] MEDS ORDERED: KETOROLAC 30 MG/ML INJ ONE (14:54)
[2021-12-13] MEDS ORDERED: HYDROCODONE/APAP 7.5/325 MG TAB PO PRN (14:54)
[2021-12-13 15:22] VITALS: O2SAT 97
[2021-12-13] MEDS ORDERED: HYDROCODONE/APAP 10/325 TAB ONE (15:26)
--- NOTE | 2021-12-13 15:38 | P.DS ---
Discharge Date: 12/13/21 Disposition: ROUTINE DISCHARGE Discharge Condition: GOOD Reason for Admission: R axilla abscessfailed outpatient antibiotics Brief History of Present Illness: 61-year-old male with no known significant past medical history presents em ergency department for right axilla abscess-failed outpatient antibiotics. Patient was seen on 12/11/2021 in the emergency department here had incision and drainage of the right axilla performed he was prescribed Keflex doxycycline at the time which he has been compliant with thus far. Today he noted that he has significant erythema/cellulitis extending from the site of the abscess induration also noted. Patient was started on broad-spectrum antibiotics vancomycin/cefepime, wound and blood cultures were obtained ED prior wishes to admit for further evaluation and management of cellulitis and abscess right axilla. Hospital Course: Patient is status post incision and debridement. Patient has done well during hospital stay. Patient is clinically doing much better. At this time, patient is stable for discharge home. Vital Signs/Physical Exam: Temp Pulse Resp BP Pulse Ox 97.8 F 77 18 122/71 98 12/13/21 15:16 12/13/21 15:16 12/13/21 15:16 12/13/21 15:06 12/13/21 12:00 General: Alert, In no apparent distress, Oriented x3 Laboratory Data at Discharge: WBC 18.5 K/uL (4.3-10.9) H 12/13/21 03:44 Hgb 14.0 g/dL (13.6-17.9) 12/13/21 03:44 Hct 41.3 % (39.6-49.0) 12/13/21 03:44 Plt Count 264 K/uL (152-406) 12/13/21 03:44 PT 12.4 SECONDS (9.5-12.5) 12/13/21 03:44 INR 1.12 12/13/21 03:44 APTT 28.0 SECONDS (24.3-36.9) 12/13/21 03:44 Sodium 131 mmol/L (136-145) L 12/13/21 03:44 Potassium 4.4 mmol/L (3.5-5.1) 12/13/21 03:44 BUN 21 mg/dL (7-18) H 12/13/21 03:44 Creatinine 1.33 mg/dL (0.55-1.3) H 12/13/21 03:44 Glucose 366 mg/dL (74-106) H 12/13/21 03:44 Total Bilirubin 0.4 mg/dL (0.2-1.0) 12/13/21 03:44 AST 16 U/L (15-37) 12/13/21 03:44 ALT 34 U/L (12-78) 12/13/21 03:44 Alkaline Phosphatase 115 U/L (45-117) 12/13/21 03:44 Home Medications: Hydrocodone 7.5/APAP 325 [[place] 7.5/325 mg*] 1 tab PO Q12HP PRN #20 tab 12/13/21 Minocycline HCl 100 mg PO BID #14 capsule 12/13/21 Sulfamethoxazole/Trimethoprim [Bactrim Ds Tablet] 1 each PO BID #14 tablet 12/13/21 New Medications: Sulfamethoxazole/Trimethoprim [Bactrim Ds Tablet] 1 each PO BID #14 tablet Minocycline HCl 100 mg PO BID #14 capsule Hydrocodone 7.5/APAP 325 [[place] 7.5/325 mg*] 1 tab PO Q12HP PRN #20 tab PRN Reason: Pain Scale 5-7 (Moderate) Physician Discharge Instructions: -DC IV and DC home -Follow-up with PCP in 1 to 2 weeks -Please call Dr. Robertson at [phone] if any questions regarding hospital stay -Please call nursing station at [phone] if any nursing or medication questions -Return to the emergency room if symptoms worsen Diet: Regular Activity: Fall precautions Followup: Chema Chong MD [ACTIVE - CAN ADMIT] - Chema Otero MD [Primary Care Provider] -
[2021-12-13] MEDS ORDERED: CEFEPIME 1 GM in NA CHLORIDE 0.9% 100 ML IV SCH (16:00)
[2021-12-13 16:06] VITALS: BP 110/62; TEMP 97.5
[2021-12-14] MEDS ORDERED: VANCOMYCIN 1.75 GM in NA CHLORIDE 0.9% 500 ML IVPB SCH ×2 (05:00→06:00)
== END 2021-12-13 16:01 | disposition home or self-care (01) | DRG 603 ==
LOC: ER 23:28 → ERHOLD 12-13 03:42
PROVIDERS: ADMIT Hospitalist; ATTEND Hospitalist
PROC: 0H9BXZX Drainage of Right Upper Arm Skin, External Approach, Diagnostic (ICD-10-PCS; 2021-12-13)
PROC: 0HBBXZZ Excision of Right Upper Arm Skin, External Approach (ICD-10-PCS; 2021-12-13)
PROC: 0H9DXZX Drainage of Right Lower Arm Skin, External Approach, Diagnostic (ICD-10-PCS; principal; 2021-12-13 14:00)
DX: L02.411 Cutaneous abscess of right axilla (principal); L02.413 Cutaneous abscess of right upper limb; B95.62 Methicillin resistant Staphylococcus aureus infection as the cause of diseases classified elsewhere; L03.111 Cellulitis of right axilla; L91.8 Other hypertrophic disorders of the skin; E11.65 Type 2 diabetes mellitus with hyperglycemia; Z20.822 Contact with and (suspected) exposure to COVID-19
CPT/HCPCS: 36415; 80048; 80076; 81003; 82947; 85025; 85610; 85730; 87040; 87070; 87077; 87186; 87205; 96365; 96366; 96372; 96375; 99285; J0692; J1815; J2250; J2405; J2704; J3010; J3370; J7030; J7050; U0003